=== PATIENT | female | born 1950 | race Caucasian/White ===

== ENCOUNTER 2021-07-19 08:10 | Outpatient (CLI) | payer MEDICARE, OTHER, SELFPAY | END 2021-07-19 08:11 | disposition home or self-care (01) | LOC: CHSOUTPT 08:14 | PROVIDERS: PCP Family Medicine; Visit Provider Specialist | DX: L01.00 Impetigo, unspecified (principal) | CPT/HCPCS: 87070; 87147; 87186; 87205 ==

== ENCOUNTER 2022-02-03 10:07 | Emergency (ER) | payer MEDICARE, OTHER, SELFPAY ==
--- NOTE | 2022-02-03 10:08 | ED.URI ---
HPI - URI/Sore Throat General Chief Complaint: Upper Respiratory Infection Stated Complaint: upper respiratory Time Seen by Provider: 02/03/22 10:08 Source: patient and RN notes reviewed History of Present Illness HPI Narrative: patient is a 71-year-old female who presents here urgent care with complaints of cough for 5 days. Patient states that she has had low-grade fevers of 99 and has been taking Tylenol cold and flu and Mucinex. Patient denies any shortness of breath or chest discomfort. Denies any ill exposures. No other acute complaints. No acute distress noted. Patient aware of care. Some parts of this dictation were generated by voice recognition software and may contain typographical and/or grammatical inaccuracies. Related Data Home Medications Medication Instructions Recorded Confirmed amitriptyline 75 mg tablet 75 mg PO QHS 07/05/20 02/03/22 furosemide 20 mg tablet 20 mg PO QAM 07/05/20 02/03/22 hydrochlorothiazide 25 mg tablet 25 mg PO DAILY 07/05/20 02/03/22 metoprolol succinate 25 mg 25 mg PO DAILY 02/03/22 02/03/22 tablet,extended release 24 hr oxycodone 20 mg tablet 20 mg PO Q4-6H PRN Pain 02/03/22 02/03/22 oxycodone-acetaminophen 10 mg-325 1 tablet PO Q4-6H PRN Pain 02/03/22 02/03/22 mg tablet Allergies Allergy/AdvReac Type Severity Reaction Status Date / Time Penicillins Allergy Unknown SWELLING Verified 02/03/22 10:22 Review of Systems Review of Systems: CONSTITUTIONAL: Denies fever, chills, or sweats. reports of fatigue EYES: Denies visual changes, redness, or discharge. ENT: Denies rhinorrhea, congestion, sore throat, or otalgia. CARDIOVASCULAR: Denies chest pain, palpitations, or edema. RESPIRATORY: Reports of chest congestion and cough GASTROINTESTINAL: Denies abdominal pain, nausea, vomiting, or diarrhea. GENITOURINARY: Denies dysuria or hematuria. SKIN: Denies rash or itching. MUSCULOSKELETAL: Denies back pain, joint pain, or myalgia. NEUROLOGIC: Denies headache, numbness, or weakness. All other systems reviewed are negative, except as documented in HPI. [facility] Family History Family History Father Hypertension Heart disease Mother Diabetes mellitus Hypertension Heart disease Social History Social History Smoking status: Never smoker Alcohol intake: never Substance use: never Substance use type: does not use Comments At the time of my signature, I reviewed and agree with the nursing past medical, surgical, social, and family history. There is no relevant family history pertinent to the patient complaint. Exam Narrative: GENERAL: This is a well-nourished, well-developed patient, in no apparent distress. HEAD: normocephalic, atraumatic. EYES: PERRL. Sclera clear/white. Vision is grossly intact. EARS: External ears normal, auditory canals clear and without drainage, TMs normal without perforation. Hearing grossly intact. NOSE: External nose normal with no obvious nasal discharge, nares without redness, no rhinorrhea. THROAT: Mucous membranes moist, posterior pharynx clear. moderate postnasal NECK: Neck supple, non-tender without lymphadenopathy CARDIOVASCULAR: Regular rate and rhythm without murmurs, gallops, or rubs. RESPIRATORY: Clear to auscultation. Breath sounds equal bilaterally. No wheezes, rales, or rhonchi. SKIN: warm, intact with no suspicious lesions or rash, good texture and turgor. NEURO: awake, alert, and oriented to person, place and time. There were no obvious focal neurologic abnormalities. EXTREMITIES: No clubbing, cyanosis, or edema. Course Course Level of Care: Express Care Visit Vital Signs Vital signs: Vital Signs Temperature 98.9 F 02/03/22 10:11 Pulse Rate 89 02/03/22 10:11 Respiratory Rate 16 02/03/22 10:11 Blood Pressure 138/80 02/03/22 10:11 Pulse Oximetry 97 02/03/22 10:11 Oxygen Delivery
[2022-02-03 10:11] VITALS: BP 138/80; PULSE 89; RESP 16; TEMP 37.2; O2SAT 97
== END 2022-02-03 10:30 | disposition home or self-care (01) ==
PROVIDERS: Emergency Provider Nurse Practitioner Family; PCP Family Medicine
DX: J06.9 Acute upper respiratory infection, unspecified (principal); Z79.891 Long term (current) use of opiate analgesic
CPT/HCPCS: 99213; G0463